=== PATIENT | female | born 1990 | race Caucasian/White ===

== ENCOUNTER 2016-04-24 00:27 | Emergency (ER) | payer OTHER ==
[2016-04-24] MEDS ORDERED: Ibuprofen TAB* 200 MG PO ONE (00:40)
[2016-04-24] MEDS ORDERED: Acetaminophen TAB* 325 MG PO ONE (01:35)
--- NOTE | 2016-04-24 01:35 | ED ---
Mando Quiroga Janilya, scribed for Andrew Suresh MD on 04/24/16 at 0046 . HPI Febrile Illness - HPI Summary HPI Summary: A 26 y/o female came in to [facility] presenting w/ a gradual onset of constant flu- like Sx starting a few hours ago. Pt reports MARTINEZ, fever, chills, nasal congestion , discomfort, nausea, overall body aches. Pt took 2 tablets of Ibuprofen yesterday at 1600 with little relief. Similarly, sleeping did not significantly alleviate her condition. - History of Current Complaint Chief Complaint: EDFluSymptoms Time Seen by Provider: 04/24/16 00:35 Hx Obtained From: Patient Onset/Duration: Started Hours Ago, Atraumatic, Still Present Timing: Constant Initial Severity: Moderate Current Severity: Moderate Pain Intensity: 7 Pain Scale Used: 0-10 Numeric Aggravating Factors: Nothing Alleviating Factors: Nothing Associated Signs and Symptoms: Chills, Myalgia - Allergy/Home Medications Allergies/Adverse Reactions: Allergies Allergy/AdvReac Type Severity Reaction Status Date / Time No Known Allergies Allergy Verified 03/22/12 16:47 PMH/Surg Hx/FS Hx/Imm Hx Previously Healthy: Yes - Surgical History Surgery Procedure, Year, and Place: ORAL SURGERY Infectious Disease History: No Infectious Disease History: Denies: Traveled Outside the [place] in Last 30 Days - Family History Known Family History: Positive: Other - cervical cancer - mother Negative: Cardiac Disease, Hypertension, Diabetes - Social History Substance Use Type: Reports: Marijuana Review of Systems Constitutional: Other - discomfort Positive: Fever, Chills ENT: Other - nasal congestion Positive: Nausea Positive: Arthralgia - overall body aches, Myalgia - overall body aches Positive: Headache All Other Systems Reviewed And Are Negative: Yes Physical Exam Triage Information Reviewed: Yes Vital Signs On Initial Exam: Initial Vitals Temp Pulse Resp BP Pulse Ox 102.6 F 81 20 116/77 100 04/24/16 00:29 04/24/16 00:29 04/24/16 00:29 04/24/16 00:04/24/16 00:29 Vital Signs Reviewed: Yes Appearance: Positive: Well-Appearing, No Pain Distress Skin: Positive: Warm Head/Face: Positive: Normal Head/Face Inspection Eyes: Positive: HIREN ENT: Positive: Normal ENT inspection Neck: Positive: Supple Respiratory/Lung Sounds: Positive: Clear to Auscultation, Breath Sounds Present Cardiovascular: Positive: Normal Abdomen Description: Positive: Nontender, Soft Bowel Sounds: Positive: Present Musculoskeletal: Positive: Strength/ROM Intact Neurological: Positive: Alert, Oriented to Person Place, Time, Normal Gait Psychiatric: Positive: Normal Diagnostics - Vital Signs Vital Signs Temp Pulse Resp BP Pulse Ox 04/24/16 00:29 102.6 F 81 20 116/77 100 - Laboratory Lab Results: Lab Results 04/24/16 Range/Units 01:05 Influenza A (Rapid) Negative (Negative) Influenza B (Rapid) Negative (Negative) Lab Statement: Any lab studies that have been ordered have been reviewed, and results considered in the medical decision making process. Re-Evaluation - Re-Evaluation First Eval Change: Improved Course/Dx - Diagnoses Provider Diagnoses: Viral syndrome Discharge - Discharge Plan Condition: Improved Disposition: HOME Patient Education Materials: Viral Syndrome (ED) Referrals: No Primary Care Phys,NOPCP [Primary Care Provider] - The documentation as recorded by the Mando guidry Janilya accurately reflects the service I personally performed and the decisions made by , Andrew Suresh MD.
[2016-04-24 02:41] VITALS: BP 102/72
== END 2016-04-24 02:40 | disposition home or self-care (01) ==
LOC: ED 00:27
DX: B34.9 Viral infection, unspecified (principal)
CPT/HCPCS: 87502; 99282; A9270-GY